=== PATIENT | male | born 1965 | race Hispanic/Latino ===

== ENCOUNTER 2020-12-25 15:56 | Inpatient (IN) | payer OTHER ==
[~2020-12-25] VITALS: Ht 170.2 cm; Wt 140.6 kg
[2020-12-25] MEDS ORDERED: GLIPIZIDE5 MG PO (18:19)
[2020-12-25] MEDS ORDERED: ENALAPRIL MALEA20 MG PO (18:19)
[2020-12-25] MEDS ORDERED: HYDROCHLOROTHIA25 MG PO (18:19)
[2020-12-25] MEDS ORDERED: METFORMIN HCL500 MG PO (18:19)
[2020-12-25] MEDS ORDERED: SODIUM CHLORIDE 0.9% 1000ML 1,000 ML ONE (18:35)
[2020-12-25] MEDS ORDERED: HYDRALAZINE HCL 20 MG/ML VIAL IV PRN (18:45)
[2020-12-25] MEDS ORDERED: MELATONIN 5 MG TABLET PO PRN (18:45)
[2020-12-25] MEDS ORDERED: MORPHINE SULFATE INJ 2 MG/ML SYR IV PRN (18:45)
[2020-12-25] MEDS ORDERED: ONDANSETRON HCL INJ 2MG/ML 2ML 2 MG/ML VIAL IV PRN (18:45)
[2020-12-25] MEDS ORDERED: ACETAMINOPHEN 325 MG TAB PO PRN (18:45)
[2020-12-25] MEDS ORDERED: DEXTROSE 50% SYRINGE 50 ML IV PRN (18:45)
[2020-12-25 18:57] VITALS: BP 144/88
[2020-12-25] MEDS ORDERED: SODIUM CHLORIDE 0.9% 1000ML 1,000 ML IV ONE ×2 (19:00→23:00)
[2020-12-25 20:00] VITALS: BP 144/80
[2020-12-25 20:16] VITALS: BP 144/80
[2020-12-25 20:44] VITALS: BP 144/80
[2020-12-25] MEDS: INSULIN LISPRO 100 UNIT/1 ML 3ML VIAL SQ SCH (21:00)
[2020-12-25] MEDS: ASPIRIN 81 MG CHEW TAB PO SCH (21:13)
[2020-12-25 21:18] LABS: BASOPHILS % 0.3 % (0.0-1.0); EOSINOPHILS # (AUTO) 0.1 (0.0-0.4); EOSINOPHILS % 1.6 % (0.0-6.0); HEMATOCRIT 22.2 % (38.2-49.6); LYMPHOCYTES # (AUTO) 1.5 (1.0-3.2); LYMPHOCYTES % 18.9 % (18.0-39.1); MEAN CORPUSCULAR HEMOGLOBIN 26.2 pg (28-32); MEAN CORPUSCULAR HGB CONC 29.7 g/dL (31-35); MEAN CORPUSCULAR VOLUME 88.1 fL (81-99); MONOCYTES # (AUTO) 0.6 (0.2-0.8); MONOCYTES % 7.2 % (4.4-11.3); NEUTROPHILS # (AUTO) 5.5 (2.1-6.9); NEUTROPHILS % 71.6 % (38.7-80.0); PLATELET COUNT 363 x10e3/uL (140-360); RED BLOOD COUNT 2.52 x10e6/uL (4.3-5.7); RED CELL DISTRIBUTION WIDTH 15.2 % (11.7-14.4)
[2020-12-25 21:22] LABS: HEMOGLOBIN 6.6 g/dL (14.0-18.0)
[2020-12-25 21:29] LABS: CLARITY,URINE CLEAR (CLEAR); COLOR,URINE YELLOW (YELLOW); KETONES,URINE NEGATIVE (NEGATIVE); LEUKOCYTE ESTERASE ,URINE NEGATIVE (NEGATIVE); NITRITE,URINE NEGATIVE (NEGATIVE); PROTEIN,URINE DIPSTICK 1+ (NEGATIVE); URINE UROBILINOGEN 0.2 mg/dL (0.2 - 1)
[2020-12-25 21:33] LABS: ALBUMIN 3.1 g/dL (3.5-5.0); ALBUMIN/GLOBULIN RATIO 0.7 (0.8-2.0); ANION GAP 17.5 mmol/L (8-16); CALCIUM 8.9 mg/dL (8.4-10.2); CREATININE, SERUM 2.32 mg/dL (0.72-1.25); POTASSIUM 4.5 mmol/L (3.5-5.1)
[2020-12-25 21:40] LABS: EPITHELIAL CELLS,URINE FEW /LPF
[2020-12-25 22:05] LABS: CREATINE KINASE 50 IU/L (30-200)
[2020-12-25] MEDS ORDERED: SODIUM CHLORIDE 0.9% 250ML 250 ML IV ONE (23:00)
[2020-12-26] VITALS (10 sets, daily range): BP systolic 136–155; BP diastolic 77–92
[2020-12-26] MEDS: INSULIN LISPRO 100 UNIT/1 ML 3ML VIAL SQ SCH ×4 (07:30→21:41)
[2020-12-26] MEDS: FAMOTIDINE 20 MG TAB PO SCH ×2 (09:00→16:30)
[2020-12-26] MEDS: PANTOPRAZOLE SOD 40 MG TABEC PO SCH (09:00)
[2020-12-26] MEDS: ASPIRIN 81 MG CHEW TAB PO SCH ×2 (09:00→18:47)
[2020-12-26 21:58] LABS: BASOPHILS % 0.3 % (0.0-1.0); EOSINOPHILS # (AUTO) 0.1 (0.0-0.4); EOSINOPHILS % 1.7 % (0.0-6.0); HEMATOCRIT 28.1 % (38.2-49.6); HEMOGLOBIN 8.5 g/dL (14.0-18.0); LYMPHOCYTES # (AUTO) 1.3 (1.0-3.2); LYMPHOCYTES % 15.9 % (18.0-39.1); MEAN CORPUSCULAR HEMOGLOBIN 26.8 pg (28-32); MEAN CORPUSCULAR HGB CONC 30.2 g/dL (31-35); MEAN CORPUSCULAR VOLUME 88.6 fL (81-99); MONOCYTES # (AUTO) 0.6 (0.2-0.8); MONOCYTES % 7.9 % (4.4-11.3); NEUTROPHILS # (AUTO) 5.8 (2.1-6.9); NEUTROPHILS % 73.9 % (38.7-80.0); PLATELET COUNT 324 x10e3/uL (140-360); RED BLOOD COUNT 3.17 x10e6/uL (4.3-5.7); RED CELL DISTRIBUTION WIDTH 14.7 % (11.7-14.4)
[2020-12-26 22:11] LABS: ALBUMIN/GLOBULIN RATIO 0.6 (0.8-2.0); ANION GAP 14.6 mmol/L (8-16); CALCIUM 9.2 mg/dL (8.4-10.2); CHOL/HDL RATIO 4.3 (3.9-4.7); POTASSIUM 4.6 mmol/L (3.5-5.1)
[2020-12-26 22:23] LABS: CREATINE KINASE 40 IU/L (30-200)
[2020-12-26 22:30] LABS: CREATININE, SERUM 2.17 mg/dL (0.72-1.25); THYROID STIMULATING HORMONE 4.565 uIU/mL (0.350-4.940)
[2020-12-27 00:31] VITALS: BP 135/92
[2020-12-27 04:00] VITALS: BP 156/87
[2020-12-27 06:45] LABS: BASOPHILS % 0.4 % (0.0-1.0); EOSINOPHILS # (AUTO) 0.1 (0.0-0.4); EOSINOPHILS % 1.7 % (0.0-6.0); HEMOGLOBIN 8.5 g/dL (14.0-18.0); LYMPHOCYTES # (AUTO) 1.2 (1.0-3.2); LYMPHOCYTES % 15.9 % (18.0-39.1); MEAN CORPUSCULAR HEMOGLOBIN 26.5 pg (28-32); MEAN CORPUSCULAR HGB CONC 30.4 g/dL (31-35); MEAN CORPUSCULAR VOLUME 87.2 fL (81-99); MONOCYTES # (AUTO) 0.6 (0.2-0.8); MONOCYTES % 7.9 % (4.4-11.3); NEUTROPHILS # (AUTO) 5.5 (2.1-6.9); NEUTROPHILS % 73.7 % (38.7-80.0); PLATELET COUNT 357 x10e3/uL (140-360); RED BLOOD COUNT 3.21 x10e6/uL (4.3-5.7); RED CELL DISTRIBUTION WIDTH 14.7 % (11.7-14.4)
[2020-12-27 07:07] LABS: ANION GAP 15.3 mmol/L (8-16); CALCIUM 9.3 mg/dL (8.4-10.2); CREATININE, SERUM 2.08 mg/dL (0.72-1.25); POTASSIUM 4.3 mmol/L (3.5-5.1)
[2020-12-27 07:25] VITALS: BP 141/79
[2020-12-27 07:26] LABS: CREATINE KINASE 33 IU/L (30-200)
[2020-12-27] MEDS: FAMOTIDINE 20 MG TAB PO SCH (07:30)
[2020-12-27] MEDS: PANTOPRAZOLE SOD 40 MG TABEC PO SCH (07:30)
[2020-12-27 08:23] VITALS: BP 141/79
[2020-12-27] MEDS: INSULIN LISPRO 100 UNIT/1 ML 3ML VIAL SQ SCH ×2 (08:30→12:01)
[2020-12-27] MEDS: ASPIRIN 81 MG CHEW TAB PO SCH (09:00)
[2020-12-27 11:34] VITALS: BP 137/89
[2020-12-27] MEDS ORDERED: PANTOPRAZOLE SO40 MG PO (12:17)
[2020-12-27] MEDS ORDERED: DEXTROSE 50% SYRINGE 50 ML IV ONE (15:29)
== END 2020-12-27 13:25 | disposition home or self-care (01) | DRG 683 ==
LOC: MED/SURG 18:09
PROVIDERS: ADMIT Internal Medicine; ATTEND Internal Medicine
PROC: 30233N1 Transfusion of Nonautologous Red Blood Cells into Peripheral Vein, Percutaneous Approach (ICD-10-PCS; principal; 2020-12-26)
DX: N17.9 Acute kidney failure, unspecified (principal); I13.0 Hypertensive heart and chronic kidney disease with heart failure and stage 1 through stage 4 chronic kidney disease, or unspecified chronic kidney disease; Z68.42 Body mass index [BMI] 45.0-49.9, adult; K92.1 Melena; I50.22 Chronic systolic (congestive) heart failure; R07.9 Chest pain, unspecified; E11.22 Type 2 diabetes mellitus with diabetic chronic kidney disease; E66.01 Morbid (severe) obesity due to excess calories; N18.32 Chronic kidney disease, stage 3b; D63.1 Anemia in chronic kidney disease; Z82.49 Family history of ischemic heart disease and other diseases of the circulatory system; Z83.3 Family history of diabetes mellitus; Z80.9 Family history of malignant neoplasm, unspecified; Z72.89 Other problems related to lifestyle
CPT/HCPCS: 36415; 71045; 78580; 80048; 80053; 80061; 81001; 82270; 82550; 82553; 82948; 83036; 83880; 84443; 84484; 85025; 86850; 86900; 86920; 87086; 93306; A9540; J7030; J7050; J7799; P9016

== ENCOUNTER 2021-01-02 19:14 | Emergency (ER) | payer OTHER ==
[~2021-01-02] VITALS: Ht 170.2 cm; Wt 140.6 kg
[~2021-01-02 19:14] MED LIST: ENALAPRIL MALEA20 MG PO; GLIPIZIDE5 MG PO; HYDROCHLOROTHIA25 MG PO; METFORMIN HCL500 MG PO; PANTOPRAZOLE SO40 MG PO
[2021-01-02 19:36] LABS: BASOPHILS % 0.2 % (0.0-1.0); EOSINOPHILS # (AUTO) 0.1 (0.0-0.4); EOSINOPHILS % 1.6 % (0.0-6.0); HEMATOCRIT 29.2 % (38.2-49.6); HEMOGLOBIN 8.8 g/dL (14.0-18.0); LYMPHOCYTES # (AUTO) 1.1 (1.0-3.2); LYMPHOCYTES % 13.6 % (18.0-39.1); MEAN CORPUSCULAR HEMOGLOBIN 26.9 pg (28-32); MEAN CORPUSCULAR HGB CONC 30.1 g/dL (31-35); MEAN CORPUSCULAR VOLUME 89.3 fL (81-99); MONOCYTES # (AUTO) 0.7 (0.2-0.8); MONOCYTES % 8.8 % (4.4-11.3); NEUTROPHILS # (AUTO) 6.3 (2.1-6.9); NEUTROPHILS % 75.6 % (38.7-80.0); PLATELET COUNT 358 x10e3/uL (140-360); RED BLOOD COUNT 3.27 x10e6/uL (4.3-5.7); RED CELL DISTRIBUTION WIDTH 14.8 % (11.7-14.4)
[2021-01-02 19:56] LABS: ALBUMIN 3.4 g/dL (3.5-5.0); ALBUMIN/GLOBULIN RATIO 0.7 (0.8-2.0); ANION GAP 18.6 mmol/L (8-16); CALCIUM 9.1 mg/dL (8.4-10.2); CREATININE, SERUM 2.2 mg/dL (0.72-1.25); POTASSIUM 4.6 mmol/L (3.5-5.1)
[2021-01-02] MEDS ORDERED: DEXTROSE 50% SYRINGE 50 ML IV STA (20:02)
[2021-01-02] MEDS ORDERED: DEXTROSE 50% SYRINGE 50 ML IV ONE (20:13)
[2021-01-02 22:36] VITALS: BP 177/89
== END 2021-01-02 22:40 | disposition home or self-care (01) ==
LOC: ER 19:19
DX: D64.9 Anemia, unspecified (principal); R42 Dizziness and giddiness; E11.649 Type 2 diabetes mellitus with hypoglycemia without coma; I10 Essential (primary) hypertension
CPT/HCPCS: 36415; 80053; 82948; 85025; 99283; J7799

== ENCOUNTER 2021-01-15 05:42 | Emergency (ER) | payer OTHER ==
[~2021-01-15] VITALS: Ht 170.2 cm; Wt 140.6 kg
[2021-01-15] MEDS ORDERED: MORPHINE SULFATE INJ 4 MG/ML INJ 1ML IV STA ×2 (05:52→10:56)
[2021-01-15] MEDS ORDERED: ONDANSETRON HCL INJ 2MG/ML 2ML 2 MG/ML VIAL IV STA (05:52)
[2021-01-15] MEDS ORDERED: SODIUM CHLORIDE 0.9% 500ML 500 ML IV ONE ×2 (06:00→09:00)
[2021-01-15 06:10] LABS: BASOPHILS % 0.3 % (0.0-1.0); EOSINOPHILS # (AUTO) 0.1 (0.0-0.4); EOSINOPHILS % 0.8 % (0.0-6.0); HEMATOCRIT 26.2 % (38.2-49.6); LYMPHOCYTES # (AUTO) 1.2 (1.0-3.2); LYMPHOCYTES % 11.9 % (18.0-39.1); MEAN CORPUSCULAR HEMOGLOBIN 26.2 pg (28-32); MEAN CORPUSCULAR HGB CONC 30.5 g/dL (31-35); MEAN CORPUSCULAR VOLUME 85.9 fL (81-99); MONOCYTES % 9.7 % (4.4-11.3); NEUTROPHILS # (AUTO) 7.9 (2.1-6.9); NEUTROPHILS % 76.6 % (38.7-80.0); PLATELET COUNT 441 x10e3/uL (140-360); RED BLOOD COUNT 3.05 x10e6/uL (4.3-5.7); RED CELL DISTRIBUTION WIDTH 14.9 % (11.7-14.4)
[2021-01-15 06:33] LABS: ALANINE AMINOTRANSFERASE 17 IU/L (0-55); ALBUMIN 3.3 g/dL (3.5-5.0); ALBUMIN/GLOBULIN RATIO 0.6 (0.8-2.0); ALKALINE PHOSPHATASE 144 IU/L (40-150); ANION GAP 20.5 mmol/L (8-16); BLOOD UREA NITROGEN 52 mg/dL (7-26); BUN/CREATININE RATIO 17 (6-25); CALCIUM 9.7 mg/dL (8.4-10.2); CARBON DIOXIDE 21 mmol/L (22-29); CHLORIDE 99 mmol/L (98-107); CREATINE KINASE 33 IU/L (30-200); CREATININE, SERUM 3.03 mg/dL (0.72-1.25); EST GLOMERULAR FILTRATION RATE 22 ML/MIN (60-); GLUCOSE 136 mg/dL (74-118); MAGNESIUM 2.1 MG/DL (1.3-2.1); POTASSIUM 5.5 mmol/L (3.5-5.1); SODIUM 135 mmol/L (136-145)
[2021-01-15 06:37] LABS: INR 1.03; PROTHROMBIN TIME 14.1 seconds (11.9-14.5)
[2021-01-15 06:38] LABS: PARTIAL THROMBOPLASTIN TIME 33.2 seconds (23.8-35.5)
[2021-01-15] MEDS ORDERED: HEPARIN 25,000 UNIT 1,500 UNIT in DEXTROSE 5% 250ML 250 ML IV SCH (07:45)
[2021-01-15] MEDS ORDERED: HEPARIN SOD (PORCINE) 1000 UNIT/ML SDV IV ONE (07:45)
[2021-01-15] MEDS ORDERED: HEPARIN 25,000 UNIT DRIP IV ONE (08:08)
[2021-01-15] MEDS ORDERED: SODIUM CHLORIDE 0.9% 500ML 500 ML ONE (09:00)
[2021-01-15 09:14] LABS: CLARITY,URINE CLEAR (CLEAR); COLOR,URINE YELLOW (YELLOW); KETONES,URINE NEGATIVE (NEGATIVE); LEUKOCYTE ESTERASE ,URINE NEGATIVE (NEGATIVE); NITRITE,URINE NEGATIVE (NEGATIVE); PROTEIN,URINE DIPSTICK TRACE (NEGATIVE); URINE UROBILINOGEN 0.2 mg/dL (0.2 - 1)
[2021-01-15 09:15] LABS: EPITHELIAL CELLS,URINE FEW /LPF; RBC,URINE 0-5 /HPF (0-5); WBC,URINE (MAN) 0-5 /HPF (0-5)
[2021-01-15 09:28] LABS: BACTERIA,URINE MANY /HPF
[2021-01-15] MEDS ORDERED: MORPHINE SULFATE INJ 2 MG/ML SYR ONE (11:38)
== END 2021-01-15 11:36 | disposition other institution (70) ==
LOC: ER 05:57
DX: M79.662 Pain in left lower leg (principal); I82.422 Acute embolism and thrombosis of left iliac vein; E11.65 Type 2 diabetes mellitus with hyperglycemia; R94.31 Abnormal electrocardiogram [ECG] [EKG]; I10 Essential (primary) hypertension; D64.9 Anemia, unspecified; N18.9 Chronic kidney disease, unspecified; Z20.822 Contact with and (suspected) exposure to COVID-19
CPT/HCPCS: 36415; 71045; 80053; 81001; 82550; 82553; 83605; 83735; 84484; 85025; 85379; 85610; 85730; 87040; 87086; 93005; 93971; 99284; J1644; J2270 ×2; J2405; J7040; U0002

== ENCOUNTER 2021-04-22 20:08 | Inpatient (IN) | payer OTHER ==
[~2021-04-22] VITALS: Ht 152.4 cm; Wt 140.6 kg
[2021-04-22] MEDS ORDERED: CALCITONIN SALMON 400 IU/2ML VIAL SC ONE (20:15)
[2021-04-22] MEDS: SODIUM CHLORIDE 0.9% 1000ML 1,000 ML IV SCH (21:07)
[2021-04-22 21:48] LABS: BASOPHILS % 0.4 % (0.0-1.0); EOSINOPHILS # (AUTO) 0.1 (0.0-0.4); HEMATOCRIT 30.8 % (38.2-49.6); HEMOGLOBIN 9.3 g/dL (14.0-18.0); LYMPHOCYTES # (AUTO) 1.2 (1.0-3.2); LYMPHOCYTES % 15.1 % (18.0-39.1); MEAN CORPUSCULAR HGB CONC 30.2 g/dL (31-35); MEAN CORPUSCULAR VOLUME 89.5 fL (81-99); MONOCYTES # (AUTO) 0.7 (0.2-0.8); MONOCYTES % 9.3 % (4.4-11.3); NEUTROPHILS # (AUTO) 5.7 (2.1-6.9); NEUTROPHILS % 73.8 % (38.7-80.0); PLATELET COUNT 413 x10e3/uL (140-360); RED BLOOD COUNT 3.44 x10e6/uL (4.3-5.7); RED CELL DISTRIBUTION WIDTH 14.2 % (11.7-14.4)
[2021-04-22 21:52] LABS: ALANINE AMINOTRANSFERASE 9 IU/L (0-55); ALBUMIN 3.4 g/dL (3.5-5.0); ALBUMIN/GLOBULIN RATIO 0.7 (0.8-2.0); ALKALINE PHOSPHATASE 159 IU/L (40-150); ANION GAP 15.5 mmol/L (8-16); BLOOD UREA NITROGEN 19 mg/dL (7-26); BUN/CREATININE RATIO 11 (6-25); CALCIUM 12.4 mg/dL (8.4-10.2); CARBON DIOXIDE 21 mmol/L (22-29); CHLORIDE 101 mmol/L (98-107); CREATINE KINASE 12 IU/L (30-200); CREATININE, SERUM 1.73 mg/dL (0.72-1.25); EST GLOMERULAR FILTRATION RATE 42 ML/MIN (60-); GLUCOSE 131 mg/dL (74-118); POTASSIUM 4.5 mmol/L (3.5-5.1); SODIUM 133 mmol/L (136-145)
[2021-04-23] MEDS: SODIUM CHLORIDE 0.9% 1000ML 1,000 ML IV SCH ×3 (06:49→21:02)
[2021-04-23] MEDS ORDERED: CALCITONIN SALMON 400 IU/2ML VIAL SC SCH (09:00)
[2021-04-23] MEDS ORDERED: HYDRALAZINE HCL 20 MG/ML VIAL IV PRN (11:00)
[2021-04-23] MEDS ORDERED: DEXTROSE 50% SYRINGE 50 ML IV PRN (11:00)
[2021-04-23] MEDS: INSULIN LISPRO 100 UNIT/1 ML 3ML VIAL SQ SCH ×3 (11:30→21:15)
[2021-04-23 11:38] VITALS: BP 118/67
[2021-04-23 11:50] VITALS: BP 118/67
[2021-04-23 12:54] LABS: ANION GAP 13.5 mmol/L (8-16); CALCIUM 11.5 mg/dL (8.4-10.2); CREATININE, SERUM 1.38 mg/dL (0.72-1.25)
[2021-04-23 12:57] LABS: POTASSIUM 5.5 mmol/L (3.5-5.1)
[2021-04-23] MEDS ORDERED: ELIQUIS2.5 MG PO (14:07)
[2021-04-23] MEDS ORDERED: CALCITONIN SALMON 400 IU/2ML VIAL SC ONE (15:00)
[2021-04-23 15:19] VITALS: BP 136/85
[2021-04-23] MEDS ORDERED: SOD POLYSTYRENE SULFONATE SUSP 15 GM/60 ML BTL PO ONE (15:50)
[2021-04-23] MEDS ORDERED: LACTULOSE SYRUP 20 GM/30 ML UDC PO ONE (15:50)
[2021-04-23] MEDS ORDERED: PAMIDRONATE DISODIUM 90 MG in SODIUM CHLORIDE 0.9% 1000ML 1,000 ML IV ONE (16:00)
[2021-04-23] MEDS: APIXABAN 5 MG TABLET PO SCH (16:01)
[2021-04-23 20:00] VITALS: BP 137/79
[2021-04-23 21:00] VITALS: BP 137/79
[2021-04-24] VITALS (8 sets, daily range): BP systolic 124–153; BP diastolic 76–87
[2021-04-24] MEDS: SODIUM CHLORIDE 0.9% 1000ML 1,000 ML IV SCH ×3 (04:36→19:41)
[2021-04-24 06:34] LABS: BASOPHILS % 0.4 % (0.0-1.0); EOSINOPHILS # (AUTO) 0.1 (0.0-0.4); EOSINOPHILS % 1.6 % (0.0-6.0); HEMATOCRIT 29.3 % (38.2-49.6); HEMOGLOBIN 8.6 g/dL (14.0-18.0); LYMPHOCYTES # (AUTO) 0.9 (1.0-3.2); LYMPHOCYTES % 12.8 % (18.0-39.1); MEAN CORPUSCULAR HEMOGLOBIN 26.4 pg (28-32); MEAN CORPUSCULAR HGB CONC 29.4 g/dL (31-35); MEAN CORPUSCULAR VOLUME 89.9 fL (81-99); MONOCYTES # (AUTO) 0.6 (0.2-0.8); MONOCYTES % 7.9 % (4.4-11.3); NEUTROPHILS # (AUTO) 5.7 (2.1-6.9); PLATELET COUNT 365 x10e3/uL (140-360); RED BLOOD COUNT 3.26 x10e6/uL (4.3-5.7); RED CELL DISTRIBUTION WIDTH 14.1 % (11.7-14.4)
[2021-04-24 06:53] LABS: ALBUMIN 3.1 g/dL (3.5-5.0); ALBUMIN/GLOBULIN RATIO 0.7 (0.8-2.0); ALKALINE PHOSPHATASE 137 IU/L (40-150); ANION GAP 13.5 mmol/L (8-16); BLOOD UREA NITROGEN 13 mg/dL (7-26); BUN/CREATININE RATIO 11 (6-25); CALCIUM 10.8 mg/dL (8.4-10.2); CARBON DIOXIDE 22 mmol/L (22-29); CHLORIDE 104 mmol/L (98-107); CREATININE, SERUM 1.22 mg/dL (0.72-1.25); EST GLOMERULAR FILTRATION RATE 62 ML/MIN (60-); GLUCOSE 128 mg/dL (74-118); POTASSIUM 4.5 mmol/L (3.5-5.1); SODIUM 135 mmol/L (136-145)
[2021-04-24 07:08] LABS: ALANINE AMINOTRANSFERASE < 6 IU/L (0-55)
[2021-04-24] MEDS: INSULIN LISPRO 100 UNIT/1 ML 3ML VIAL SQ SCH ×4 (07:30→20:24)
[2021-04-24] MEDS: APIXABAN 5 MG TABLET PO SCH ×2 (08:51→16:45)
[2021-04-24] MEDS ORDERED: ASCORBIC ACID 500 MG TAB PO SCH (09:00)
[2021-04-24] MEDS ORDERED: ZINC SULFATE 220 MG CAP PO SCH (09:00)
[2021-04-24] MEDS ORDERED: CHOLECALCIFEROL 1,000 UNIT TAB PO SCH (09:00)
[2021-04-24] MEDS ORDERED: ONDANSETRON HCL INJ 2MG/ML 2ML 2 MG/ML VIAL IV PRN (17:15)
[2021-04-24] MEDS: METOPROLOL TARTRATE INJ 1 MG/ML VIAL IV PRN ×2 (17:40→21:40)
[2021-04-24] MEDS ORDERED: ACETAMINOPHEN 325 MG TAB PO PRN (20:30)
[2021-04-25] VITALS (7 sets, daily range): BP systolic 110–148; BP diastolic 72–92
[2021-04-25] MEDS: METOPROLOL TARTRATE INJ 1 MG/ML VIAL IV PRN (03:47)
[2021-04-25] MEDS: SODIUM CHLORIDE 0.9% 1000ML 1,000 ML IV SCH ×3 (06:57→22:44)
[2021-04-25 07:15] LABS: ALBUMIN/GLOBULIN RATIO 0.7 (0.8-2.0); ANION GAP 13.4 mmol/L (8-16); CALCIUM 10.3 mg/dL (8.4-10.2); CREATININE, SERUM 1.22 mg/dL (0.72-1.25); POTASSIUM 4.4 mmol/L (3.5-5.1)
[2021-04-25] MEDS: APIXABAN 5 MG TABLET PO SCH ×2 (09:00→17:30)
[2021-04-25] MEDS: INSULIN LISPRO 100 UNIT/1 ML 3ML VIAL SQ SCH ×4 (10:21→21:00)
[2021-04-25] MEDS ORDERED: PANTOPRAZOLE SOD 40 MG TABEC PO ONE (12:45)
[2021-04-26] VITALS: BP 135/78
[2021-04-26 04:00] VITALS: BP 134/73
[2021-04-26 05:07] LABS: ANION GAP 10.9 mmol/L (8-16); CREATININE, SERUM 1.14 mg/dL (0.72-1.25); POTASSIUM 3.9 mmol/L (3.5-5.1)
[2021-04-26] MEDS ORDERED: PANTOPRAZOLE SOD 40 MG TABEC PO SCH (07:30)
[2021-04-26] MEDS: INSULIN LISPRO 100 UNIT/1 ML 3ML VIAL SQ SCH ×3 (07:30→16:20)
[2021-04-26 08:04] VITALS: BP_SYST 134; BP_SYST 138; BP_DIAS 72; BP_DIAS 73
[2021-04-26] MEDS: APIXABAN 5 MG TABLET PO SCH (08:30)
[2021-04-26] MEDS: SODIUM CHLORIDE 0.9% 1000ML 1,000 ML IV SCH (08:30)
[2021-04-26 11:54] LABS: CLARITY,URINE CLEAR (CLEAR); COLOR,URINE YELLOW (YELLOW); LEUKOCYTE ESTERASE ,URINE NEGATIVE (NEGATIVE); NITRITE,URINE NEGATIVE (NEGATIVE); PROTEIN,URINE DIPSTICK 1+ (NEGATIVE)
[2021-04-26 11:55] LABS: KETONES,URINE NEGATIVE (NEGATIVE)
[2021-04-26 12:24] VITALS: BP 142/79
[2021-04-26 12:32] LABS: EPITHELIAL CELLS,URINE FEW /LPF; MUCUS,URINE FEW (RARE); RBC,URINE 0-5 /HPF (0-5); WBC,URINE (MAN) 0-5 /HPF (0-5)
[2021-04-26] MEDS ORDERED: ACETAMINOPHEN325 M1 PO (16:23)
[2021-04-26] MEDS ORDERED: SODIUM BICARBO650 MG PO (16:23)
[2021-04-26] MEDS ORDERED: SODIUM BICARBONATE 650 MG TAB PO SCH (17:00)
[2021-04-26 17:29] VITALS: BP 136/76
== END 2021-04-26 17:40 | disposition home or self-care (01) | DRG 871 ==
LOC: ER 20:12 → ERHOLD 20:51 → MED/SURG2 04-23 10:28
PROVIDERS: ADMIT Internal Medicine; ATTEND Internal Medicine
DX: A41.9 Sepsis, unspecified organism (principal); E11.10 Type 2 diabetes mellitus with ketoacidosis without coma; K65.9 Peritonitis, unspecified; C64.2 Malignant neoplasm of left kidney, except renal pelvis; C79.9 Secondary malignant neoplasm of unspecified site; E87.2 Acidosis; N17.9 Acute kidney failure, unspecified; E87.1 Hypo-osmolality and hyponatremia; Z68.44 Body mass index [BMI] 60.0-69.9, adult; K21.9 Gastro-esophageal reflux disease without esophagitis; Z86.718 Personal history of other venous thrombosis and embolism; E83.52 Hypercalcemia; D63.8 Anemia in other chronic diseases classified elsewhere; E11.9 Type 2 diabetes mellitus without complications; E88.09 Other disorders of plasma-protein metabolism, not elsewhere classified; F10.21 Alcohol dependence, in remission; E87.5 Hyperkalemia; I12.9 Hypertensive chronic kidney disease with stage 1 through stage 4 chronic kidney disease, or unspecified chronic kidney disease; N18.30 Chronic kidney disease, stage 3 unspecified; E66.01 Morbid (severe) obesity due to excess calories
CPT/HCPCS: 36415; 71045; 76770; 80048; 80053; 81001; 82550; 82553; 82948; 83036; 83935; 84484; 85025; 87040; 93976; 96361; 99284; J2405; J2430; J7030; U0002

== ENCOUNTER 2021-07-03 14:17 | Inpatient (IN) | payer OTHER ==
[~2021-07-03] VITALS: Ht 170.2 cm; Wt 113.4 kg
[~2021-07-03 14:17] MED LIST changes: +ACETAMINOPHEN325 M1 PO; +ELIQUIS2.5 MG PO; +SODIUM BICARBO650 MG PO
[2021-07-03 14:56] LABS: BASOPHILS # (AUTO) 0.1 (0.0-0.1); BASOPHILS % 0.7 % (0.0-1.0); EOSINOPHILS # (AUTO) 0.3 (0.0-0.4); EOSINOPHILS % 3.7 % (0.0-6.0); HEMATOCRIT 32.9 % (38.2-49.6); HEMOGLOBIN 9.7 g/dL (14.0-18.0); LYMPHOCYTES # (AUTO) 1.4 (1.0-3.2); LYMPHOCYTES % 16.7 % (18.0-39.1); MEAN CORPUSCULAR HEMOGLOBIN 25.7 pg (28-32); MEAN CORPUSCULAR HGB CONC 29.5 g/dL (31-35); MEAN CORPUSCULAR VOLUME 87.3 fL (81-99); MONOCYTES # (AUTO) 0.8 (0.2-0.8); MONOCYTES % 8.7 % (4.4-11.3); NEUTROPHILS % 69.9 % (38.7-80.0); PLATELET COUNT 537 x10e3/uL (140-360); RED BLOOD COUNT 3.77 x10e6/uL (4.3-5.7); RED CELL DISTRIBUTION WIDTH 14.5 % (11.7-14.4)
[2021-07-03 15:24] LABS: INR 1.23; PROTHROMBIN TIME 16.5 seconds (11.9-14.5)
[2021-07-03 15:25] LABS: PARTIAL THROMBOPLASTIN TIME 38.6 seconds (23.8-35.5)
[2021-07-03 15:34] LABS: ALANINE AMINOTRANSFERASE 9 IU/L (0-55); ALBUMIN 3.4 g/dL (3.5-5.0); ALBUMIN/GLOBULIN RATIO 0.6 (0.8-2.0); ALKALINE PHOSPHATASE 205 IU/L (40-150); ANION GAP 17.4 mmol/L (8-16); BLOOD UREA NITROGEN 12 mg/dL (7-26); BUN/CREATININE RATIO 11 (6-25); CALCIUM 12.5 mg/dL (8.4-10.2); CARBON DIOXIDE 23 mmol/L (22-29); CHLORIDE 99 mmol/L (98-107); CREATINE KINASE 8 IU/L (30-200); CREATININE, SERUM 1.13 mg/dL (0.72-1.25); EST GLOMERULAR FILTRATION RATE 68 ML/MIN (60-); GLUCOSE 62 mg/dL (74-118); POTASSIUM 5.4 mmol/L (3.5-5.1); SODIUM 134 mmol/L (136-145)
[2021-07-03] MEDS ORDERED: DEXTROSE 50% SYRINGE 50 ML IV NR (15:43)
[2021-07-03] MEDS ORDERED: SODIUM CHLORIDE 0.9% 500ML 500 ML IV ONE (15:50)
[2021-07-03] MEDS ORDERED: DEXTROSE 5% 1,000 ML IV ONE (17:45)
[2021-07-03] MEDS ORDERED: DEXTROSE 50% SYRINGE 50 ML IV PRN (17:45)
[2021-07-03] MEDS ORDERED: ONDANSETRON HCL INJ 2MG/ML 2ML 2 MG/ML VIAL IV PRN (17:45)
[2021-07-03] MEDS: FAMOTIDINE 20 MG/2 ML VIAL IV SCH (18:31)
[2021-07-03 20:52] LABS: HYPOCHROMASIA MODERATE; PLATELET ESTIMATE ADEQUATE; PLATELET MORPHOLOGY COMMENT NORMAL
[2021-07-03 20:57] VITALS: BP 130/70
[2021-07-03] MEDS: HYDROCODONE/APAP 10MG-325MG TAB PO PRN (21:22)
[2021-07-03 21:45] VITALS: BP 130/70
[2021-07-04] VITALS (8 sets, daily range): BP systolic 112–135; BP diastolic 65–76
[2021-07-04] MEDS ORDERED: vitamin B-12 (00:05)
[2021-07-04 05:31] LABS: BASOPHILS # (AUTO) 0.1 (0.0-0.1); BASOPHILS % 0.8 % (0.0-1.0); EOSINOPHILS # (AUTO) 0.4 (0.0-0.4); HEMATOCRIT 26.8 % (38.2-49.6); LYMPHOCYTES # (AUTO) 1.4 (1.0-3.2); LYMPHOCYTES % 17.7 % (18.0-39.1); MEAN CORPUSCULAR HEMOGLOBIN 25.7 pg (28-32); MEAN CORPUSCULAR HGB CONC 29.9 g/dL (31-35); MEAN CORPUSCULAR VOLUME 86.2 fL (81-99); MONOCYTES # (AUTO) 0.9 (0.2-0.8); MONOCYTES % 11.2 % (4.4-11.3); NEUTROPHILS % 64.9 % (38.7-80.0); PLATELET COUNT 456 x10e3/uL (140-360); RED BLOOD COUNT 3.11 x10e6/uL (4.3-5.7); RED CELL DISTRIBUTION WIDTH 14.6 % (11.7-14.4)
[2021-07-04] MEDS: FAMOTIDINE 20 MG/2 ML VIAL IV SCH ×2 (05:50→08:44)
[2021-07-04 05:55] LABS: ALBUMIN 2.9 g/dL (3.5-5.0); ALBUMIN/GLOBULIN RATIO 0.6 (0.8-2.0); CALCIUM 11.6 mg/dL (8.4-10.2)
[2021-07-04 06:51] LABS: CREATININE, SERUM 1.17 mg/dL (0.72-1.25)
[2021-07-04 07:10] LABS: CREATINE KINASE < 7 IU/L (30-200)
[2021-07-04 16:00] LABS: CREATINE KINASE 14 IU/L (30-200)
[2021-07-04] MEDS: ENALAPRIL MALEATE 10 MG TAB PO SCH (17:50)
[2021-07-04] MEDS: APIXAB 2.5 MG TABLET PO SCH (17:50)
[2021-07-04] MEDS: HYDROCODONE/APAP 10MG-325MG TAB PO PRN (17:53)
[2021-07-05] VITALS (7 sets, daily range): BP systolic 116–145; BP diastolic 73–88
[2021-07-05 05:44] LABS: BASOPHILS # (AUTO) 0.1 (0.0-0.1); BASOPHILS % 0.6 % (0.0-1.0); EOSINOPHILS # (AUTO) 0.4 (0.0-0.4); EOSINOPHILS % 4.5 % (0.0-6.0); HEMATOCRIT 27.7 % (38.2-49.6); HEMOGLOBIN 8.2 g/dL (14.0-18.0); LYMPHOCYTES # (AUTO) 1.1 (1.0-3.2); LYMPHOCYTES % 12.7 % (18.0-39.1); MEAN CORPUSCULAR HEMOGLOBIN 25.6 pg (28-32); MEAN CORPUSCULAR HGB CONC 29.6 g/dL (31-35); MEAN CORPUSCULAR VOLUME 86.6 fL (81-99); MONOCYTES # (AUTO) 0.9 (0.2-0.8); MONOCYTES % 10.6 % (4.4-11.3); NEUTROPHILS # (AUTO) 6.1 (2.1-6.9); NEUTROPHILS % 71.4 % (38.7-80.0); PLATELET COUNT 452 x10e3/uL (140-360); RED CELL DISTRIBUTION WIDTH 14.2 % (11.7-14.4)
[2021-07-05 06:02] LABS: ANION GAP 14.2 mmol/L (8-16); CALCIUM 11.7 mg/dL (8.4-10.2); CREATININE, SERUM 1.18 mg/dL (0.72-1.25); POTASSIUM 5.2 mmol/L (3.5-5.1)
[2021-07-05] MEDS: FAMOTIDINE 20 MG/2 ML VIAL IV SCH ×2 (06:07→16:43)
[2021-07-05 06:35] LABS: CALCIUM IONIZED 1.7 mmol/L (1.09-1.30)
[2021-07-05] MEDS: PANTOPRAZOLE SOD 40 MG TABEC PO SCH (09:46)
[2021-07-05] MEDS: APIXAB 2.5 MG TABLET PO SCH ×2 (09:46→16:43)
[2021-07-05] MEDS: ENALAPRIL MALEATE 10 MG TAB PO SCH ×2 (09:47→16:43)
[2021-07-05] MEDS ORDERED: SOD POLYSTYRENE SULFONATE SUSP 15 GM/60 ML BTL PO ONE (11:10)
[2021-07-06] VITALS (8 sets, daily range): BP systolic 117–131; BP diastolic 64–85
[2021-07-06 05:25] LABS: BASOPHILS # (AUTO) 0.1 (0.0-0.1); BASOPHILS % 0.6 % (0.0-1.0); EOSINOPHILS # (AUTO) 0.4 (0.0-0.4); HEMATOCRIT 28.2 % (38.2-49.6); HEMOGLOBIN 8.4 g/dL (14.0-18.0); LYMPHOCYTES # (AUTO) 1.3 (1.0-3.2); LYMPHOCYTES % 15.4 % (18.0-39.1); MEAN CORPUSCULAR HEMOGLOBIN 25.7 pg (28-32); MEAN CORPUSCULAR HGB CONC 29.8 g/dL (31-35); MEAN CORPUSCULAR VOLUME 86.2 fL (81-99); MONOCYTES % 11.6 % (4.4-11.3); NEUTROPHILS # (AUTO) 5.9 (2.1-6.9); NEUTROPHILS % 68.2 % (38.7-80.0); PLATELET COUNT 467 x10e3/uL (140-360); RED BLOOD COUNT 3.27 x10e6/uL (4.3-5.7); RED CELL DISTRIBUTION WIDTH 14.4 % (11.7-14.4)
[2021-07-06] MEDS: FAMOTIDINE 20 MG/2 ML VIAL IV SCH (05:38)
[2021-07-06 05:39] LABS: ALBUMIN/GLOBULIN RATIO 0.7 (0.8-2.0); ALKALINE PHOSPHATASE 167 IU/L (40-150); ANION GAP 11.7 mmol/L (8-16); BLOOD UREA NITROGEN 11 mg/dL (7-26); BUN/CREATININE RATIO 9 (6-25); CALCIUM 11.8 mg/dL (8.4-10.2); CARBON DIOXIDE 26 mmol/L (22-29); CHLORIDE 98 mmol/L (98-107); CREATININE, SERUM 1.18 mg/dL (0.72-1.25); EST GLOMERULAR FILTRATION RATE 65 ML/MIN (60-); GLUCOSE 112 mg/dL (74-118); POTASSIUM 4.7 mmol/L (3.5-5.1); SODIUM 131 mmol/L (136-145)
[2021-07-06 06:13] LABS: ALANINE AMINOTRANSFERASE < 6 IU/L (0-55)
[2021-07-06] MEDS: PANTOPRAZOLE SOD 40 MG TABEC PO SCH (09:40)
[2021-07-06] MEDS: ENALAPRIL MALEATE 10 MG TAB PO SCH (09:40)
[2021-07-06] MEDS: APIXAB 2.5 MG TABLET PO SCH ×2 (09:42→17:25)
[2021-07-06] MEDS: IRON SUCROSE 100 MG in SODIUM CHLORIDE 0.9% 100 ML 100 ML IV SCH (13:50)
[2021-07-06] MEDS ORDERED: PAMIDRONATE DISODIUM 60 MG in SODIUM CHLORIDE 0.9% 1000ML 1,000 ML IV ONE (14:00)
[2021-07-06] MEDS ORDERED: ARTIFICIAL TEARS (OPTH) 15 ML BTL OU PRN (15:30)
[2021-07-06] MEDS: FAMOTIDINE 20 MG TAB PO SCH (21:25)
[2021-07-06] MEDS: SODIUM CHLORIDE 0.9% 1000ML 1,000 ML IV SCH ×2 (23:15→23:23)
[2021-07-07 05:11] VITALS: BP 139/86
[2021-07-07 05:44] LABS: ALBUMIN 2.8 g/dL (3.5-5.0); ALBUMIN/GLOBULIN RATIO 0.7 (0.8-2.0); ALKALINE PHOSPHATASE 181 IU/L (40-150); ANION GAP 13.2 mmol/L (8-16); BLOOD UREA NITROGEN 11 mg/dL (7-26); BUN/CREATININE RATIO 11 (6-25); CALCIUM 11.4 mg/dL (8.4-10.2); CARBON DIOXIDE 22 mmol/L (22-29); CHLORIDE 101 mmol/L (98-107); EST GLOMERULAR FILTRATION RATE 78 ML/MIN (60-); GLUCOSE 115 mg/dL (74-118); POTASSIUM 4.2 mmol/L (3.5-5.1); SODIUM 132 mmol/L (136-145)
[2021-07-07 05:49] LABS: ALANINE AMINOTRANSFERASE < 6 IU/L (0-55)
[2021-07-07] MEDS: PANTOPRAZOLE SOD 40 MG TABEC PO SCH (07:36)
[2021-07-07 08:09] VITALS: BP 135/78
[2021-07-07] MEDS: APIXAB 2.5 MG TABLET PO SCH ×2 (08:47→16:59)
[2021-07-07] MEDS: FAMOTIDINE 20 MG TAB PO SCH ×2 (08:47→21:14)
[2021-07-07] MEDS: SODIUM CHLORIDE 0.9% 1000ML 1,000 ML IV SCH (08:47)
[2021-07-07 10:06] VITALS: BP 135/78
[2021-07-07 11:29] VITALS: BP 140/72
[2021-07-07] MEDS ORDERED: PAMIDRONATE DISODIUM 30 MG/VIAL IV ONE (12:45)
[2021-07-07 13:03] LABS: BASOPHILS # (AUTO) 0.1 (0.0-0.1); BASOPHILS % 0.7 % (0.0-1.0); EOSINOPHILS # (AUTO) 0.2 (0.0-0.4); EOSINOPHILS % 2.5 % (0.0-6.0); HEMATOCRIT 30.6 % (38.2-49.6); HEMOGLOBIN 9.1 g/dL (14.0-18.0); LYMPHOCYTES # (AUTO) 0.8 (1.0-3.2); LYMPHOCYTES % 9.8 % (18.0-39.1); MEAN CORPUSCULAR HEMOGLOBIN 25.8 pg (28-32); MEAN CORPUSCULAR HGB CONC 29.7 g/dL (31-35); MEAN CORPUSCULAR VOLUME 86.7 fL (81-99); MONOCYTES # (AUTO) 0.6 (0.2-0.8); MONOCYTES % 6.7 % (4.4-11.3); NEUTROPHILS # (AUTO) 6.7 (2.1-6.9); NEUTROPHILS % 79.9 % (38.7-80.0); PLATELET COUNT 470 x10e3/uL (140-360); RED BLOOD COUNT 3.53 x10e6/uL (4.3-5.7); RED CELL DISTRIBUTION WIDTH 14.4 % (11.7-14.4)
[2021-07-07 13:26] LABS: ANION GAP 14.7 mmol/L (8-16); CALCIUM 12.2 mg/dL (8.4-10.2); CREATININE, SERUM 1.18 mg/dL (0.72-1.25); POTASSIUM 4.7 mmol/L (3.5-5.1)
[2021-07-07] MEDS ORDERED: PAMIDRONATE DISODIUM 30 MG in SODIUM CHLORIDE 0.9% 500ML 500 ML IV ONE (13:30)
[2021-07-07] MEDS ORDERED: ONDANSETRON HCL 4 MG ORAL DISINTEGRATING TAB PO PRN (18:30)
[2021-07-07] MEDS: IRON SUCROSE 100 MG in SODIUM CHLORIDE 0.9% 100 ML 100 ML IV SCH (19:57)
[2021-07-07 20:00] VITALS: BP 132/76
[2021-07-07 20:54] VITALS: BP 132/76
[2021-07-08] VITALS: BP 160/85
[2021-07-08] MEDS: SODIUM CHLORIDE 0.9% 1000ML 1,000 ML IV SCH ×2 (02:44→05:15)
[2021-07-08 07:46] VITALS: BP 141/80
[2021-07-08] MEDS: FAMOTIDINE 20 MG TAB PO SCH (08:31)
[2021-07-08] MEDS: APIXAB 2.5 MG TABLET PO SCH (08:31)
[2021-07-08] MEDS: PANTOPRAZOLE SOD 40 MG TABEC PO SCH (08:31)
[2021-07-08 09:47] VITALS: BP 141/80
[2021-07-08 11:13] VITALS: BP 135/78
[2021-07-08 13:26] LABS: ALBUMIN/GLOBULIN RATIO 0.7 (0.8-2.0); ALKALINE PHOSPHATASE 192 IU/L (40-150); ANION GAP 16.5 mmol/L (8-16); BLOOD UREA NITROGEN 11 mg/dL (7-26); BUN/CREATININE RATIO 10 (6-25); CALCIUM 10.9 mg/dL (8.4-10.2); CARBON DIOXIDE 19 mmol/L (22-29); CHLORIDE 101 mmol/L (98-107); CREATININE, SERUM 1.13 mg/dL (0.72-1.25); EST GLOMERULAR FILTRATION RATE 68 ML/MIN (60-); GLUCOSE 125 mg/dL (74-118); POTASSIUM 4.5 mmol/L (3.5-5.1); SODIUM 132 mmol/L (136-145)
[2021-07-08 13:27] LABS: ALANINE AMINOTRANSFERASE < 6 IU/L (0-55)
[2021-07-08 15:39] VITALS: BP 131/75
== END 2021-07-08 15:52 | disposition home or self-care (01) | DRG 687 ==
LOC: ER 14:30 → ERHOLD 17:39 → MED/SURG 19:48
PROVIDERS: ADMIT Internal Medicine; ATTEND Internal Medicine
DX: C64.2 Malignant neoplasm of left kidney, except renal pelvis (principal); C78.6 Secondary malignant neoplasm of retroperitoneum and peritoneum; N17.9 Acute kidney failure, unspecified; G51.0 Bell's palsy; E11.649 Type 2 diabetes mellitus with hypoglycemia without coma; Z86.718 Personal history of other venous thrombosis and embolism; Z79.01 Long term (current) use of anticoagulants; Z79.84 Long term (current) use of oral hypoglycemic drugs; E83.52 Hypercalcemia; D50.9 Iron deficiency anemia, unspecified; E11.22 Type 2 diabetes mellitus with diabetic chronic kidney disease; I12.9 Hypertensive chronic kidney disease with stage 1 through stage 4 chronic kidney disease, or unspecified chronic kidney disease; N18.2 Chronic kidney disease, stage 2 (mild); Z20.822 Contact with and (suspected) exposure to COVID-19
CPT/HCPCS: 36415; 70450; 80048; 80053; 82270; 82310; 82550; 82553; 82948; 83036; 83519; 83540; 83970; 84466; 84484; 85025; 85610; 85730; 93005; 94799; 99251; 99284; J1756; J2430; J7030; J7040; J7070; J7799; U0002

== ENCOUNTER 2022-09-30 08:03 | Inpatient (IN) | payer OTHER ==
[~2022-09-30] VITALS: Ht 170.2 cm; Wt 102.1 kg
[~2022-09-30 08:03] MED LIST changes: +vitamin B-12
[2022-09-30] MEDS ORDERED: LACTATED RINGER'S 1,000 ML INJ ONE (08:30)
[2022-09-30 09:12] LABS: ALBUMIN 1.6 g/dL (3.5-5.0); ALBUMIN/GLOBULIN RATIO 0.3 (0.8-2.0); ANION GAP 11.9 mmol/L (8-16); CALCIUM 11.6 mg/dL (8.4-10.2); CREATININE, SERUM 0.72 mg/dL (0.72-1.25); POTASSIUM 4.9 mmol/L (3.5-5.1)
[2022-09-30 09:21] LABS: BASOPHILS % 0.2 % (0.0-1.0); EOSINOPHILS % 0.2 % (0.0-6.0); HEMATOCRIT 28.3 % (38.2-49.6); HEMOGLOBIN 8.6 g/dL (14.0-18.0); LYMPHOCYTES # (AUTO) 1.2 (1.0-3.2); LYMPHOCYTES % 11.2 % (18.0-39.1); MEAN CORPUSCULAR HEMOGLOBIN 27.1 pg (28-32); MEAN CORPUSCULAR HGB CONC 30.4 g/dL (31-35); MEAN CORPUSCULAR VOLUME 89.3 fL (81-99); MONOCYTES # (AUTO) 1.3 (0.2-0.8); MONOCYTES % 11.9 % (4.4-11.3); NEUTROPHILS # (AUTO) 8.2 (2.1-6.9); NEUTROPHILS % 75.9 % (38.7-80.0); PLATELET COUNT 428 x10e3/uL (140-360); RED BLOOD COUNT 3.17 x10e6/uL (4.3-5.7); RED CELL DISTRIBUTION WIDTH 16.5 % (11.7-14.4)
[2022-09-30 09:31] LABS: CLARITY,URINE SL CLOUDY (CLEAR); COLOR,URINE ORANGE (YELLOW); KETONES,URINE NEGATIVE (NEGATIVE); LEUKOCYTE ESTERASE ,URINE NEGATIVE (NEGATIVE); NITRITE,URINE NEGATIVE (NEGATIVE); PROTEIN,URINE DIPSTICK 2+ (NEGATIVE)
[2022-09-30 09:45] LABS: RBC,URINE 0-5 /HPF (0-5); WBC,URINE (MAN) 0-5 /HPF (0-5)
[2022-09-30 09:46] LABS: BACTERIA,URINE FEW /HPF; EPITHELIAL CELLS,URINE FEW /LPF
[2022-09-30] MEDS: SODIUM CHLORIDE 0.9% 1000ML 1,000 ML IV SCH ×2 (11:00→20:15)
[2022-09-30] MEDS: ONDANSETRON HCL INJ 2MG/ML 2ML 2 MG/ML VIAL IV PRN (11:58)
[2022-09-30] MEDS ORDERED: PROMETHAZINE 12.5MG/ NACL 0.9% 12.5 MG/50 ML BAG IV PRN (14:15)
[2022-09-30 16:36] VITALS: BP 140/80
[2022-09-30 16:46] VITALS: BP 140/80
[2022-09-30] MEDS ORDERED: ENOXAPARIN SOD INJ 40 MG/0.4 ML SYR SC SCH (17:00)
[2022-09-30] MEDS: APIXABAN 5 MG TABLET PO SCH (17:49)
[2022-09-30] MEDS: SODIUM BICARBONATE 650 MG TAB PO SCH (17:50)
[2022-09-30 20:00] VITALS: BP 137/72
[2022-09-30 20:01] VITALS: BP 137/72
[2022-10-01] VITALS (8 sets, daily range): BP systolic 123–154; BP diastolic 73–86
[2022-10-01 05:41] LABS: BASOPHILS % 0.3 % (0.0-1.0); EOSINOPHILS # (AUTO) 0.1 (0.0-0.4); EOSINOPHILS % 0.5 % (0.0-6.0); HEMATOCRIT 25.6 % (38.2-49.6); HEMOGLOBIN 7.7 g/dL (14.0-18.0); LYMPHOCYTES # (AUTO) 1.1 (1.0-3.2); LYMPHOCYTES % 11.4 % (18.0-39.1); MEAN CORPUSCULAR HEMOGLOBIN 26.7 pg (28-32); MEAN CORPUSCULAR HGB CONC 30.1 g/dL (31-35); MEAN CORPUSCULAR VOLUME 88.9 fL (81-99); MONOCYTES # (AUTO) 1.4 (0.2-0.8); MONOCYTES % 13.7 % (4.4-11.3); NEUTROPHILS # (AUTO) 7.3 (2.1-6.9); NEUTROPHILS % 73.4 % (38.7-80.0); PLATELET COUNT 420 x10e3/uL (140-360); RED BLOOD COUNT 2.88 x10e6/uL (4.3-5.7); RED CELL DISTRIBUTION WIDTH 16.3 % (11.7-14.4)
[2022-10-01 06:04] LABS: ANION GAP 9.3 mmol/L (8-16); CALCIUM 11.1 mg/dL (8.4-10.2); CREATININE, SERUM 0.7 mg/dL (0.72-1.25); POTASSIUM 4.3 mmol/L (3.5-5.1)
[2022-10-01 06:43] LABS: ALBUMIN 1.5 g/dL (3.5-5.0); BILIRUBIN,DIRECT 0.9 mg/dL (0.0-0.5)
[2022-10-01 09:10] LABS: MAGNESIUM 1.6 MG/DL (1.3-2.1); PHOSPHORUS 2.7 MG/DL (2.3-4.7)
[2022-10-01] MEDS: SODIUM BICARBONATE 650 MG TAB PO SCH ×2 (09:44→17:13)
[2022-10-01] MEDS: PANTOPRAZOLE SOD 40 MG TABEC PO SCH (09:44)
[2022-10-01] MEDS: SODIUM CHLORIDE 0.9% 1000ML 1,000 ML IV SCH ×2 (09:44→17:26)
[2022-10-01] MEDS: ONDANSETRON HCL INJ 2MG/ML 2ML 2 MG/ML VIAL IV PRN (10:17)
[2022-10-01] MEDS: APIXABAN 5 MG TABLET PO SCH ×3 (12:41→21:44)
[2022-10-01 14:10] LABS: OSMOLALITY,SERUM OSMOMETER 265 mOsmol/kg (275-295)
[2022-10-01] MEDS: SODIUM CHLORIDE 1 GM TAB PO SCH ×2 (17:13→21:38)
[2022-10-01] MEDS: TAMSULOSIN HCL 0.4 MG CAP PO SCH (21:44)
[2022-10-02] VITALS (8 sets, daily range): BP systolic 117–157; BP diastolic 55–86
[2022-10-02] MEDS: SODIUM CHLORIDE 0.9% 1000ML 1,000 ML IV SCH ×2 (02:15→09:40)
[2022-10-02 06:01] LABS: MAGNESIUM 1.5 MG/DL (1.3-2.1); PHOSPHORUS 2.9 MG/DL (2.3-4.7)
[2022-10-02] MEDS: SODIUM BICARBONATE 650 MG TAB PO SCH ×2 (09:40→17:28)
[2022-10-02] MEDS: APIXABAN 5 MG TABLET PO SCH ×2 (09:40→21:40)
[2022-10-02] MEDS: TAMSULOSIN HCL 0.4 MG CAP PO SCH ×2 (09:40→21:40)
[2022-10-02] MEDS: PANTOPRAZOLE SOD 40 MG TABEC PO SCH (09:40)
[2022-10-02] MEDS: SODIUM CHLORIDE 1 GM TAB PO SCH ×3 (09:41→21:41)
[2022-10-02] MEDS ORDERED: GLYBURIDE (15:09)
[2022-10-02] MEDS ORDERED: GLIPIZIDE5 MG PO (15:19)
[2022-10-02] MEDS ORDERED: DEXTROSE 50% SYRINGE 50 ML IV PRN (19:00)
[2022-10-02] MEDS: INSULIN LISPRO 100 UNIT/1 ML 3ML VIAL SQ SCH (21:46)
[2022-10-02] MEDS: FUROSEMIDE INJ 10 MG/ML 2 ML VIAL IV SCH (21:51)
[2022-10-03] VITALS (7 sets, daily range): BP systolic 117–136; BP diastolic 67–77
[2022-10-03] MEDS: FUROSEMIDE INJ 10 MG/ML 2 ML VIAL IV SCH (05:51)
[2022-10-03] MEDS: SODIUM CHLORIDE 0.9% 1000ML 1,000 ML IV SCH ×2 (05:51→08:15)
[2022-10-03] MEDS: DEMECLOCYCLINE HCL 300 MG TAB PO SCH ×2 (06:48→14:06)
[2022-10-03] MEDS: INSULIN LISPRO 100 UNIT/1 ML 3ML VIAL SQ SCH ×4 (09:25→21:00)
[2022-10-03] MEDS: SENNA-S TABLET PO SCH (09:28)
[2022-10-03] MEDS: SODIUM CHLORIDE 1 GM TAB PO SCH ×3 (09:28→21:12)
[2022-10-03] MEDS: SODIUM BICARBONATE 650 MG TAB PO SCH (09:28)
[2022-10-03] MEDS: DOCUSATE SODIUM 100 MG CAP PO SCH ×2 (09:29→17:10)
[2022-10-03] MEDS: APIXABAN 5 MG TABLET PO SCH ×2 (09:29→21:12)
[2022-10-03] MEDS: TAMSULOSIN HCL 0.4 MG CAP PO SCH ×2 (09:29→21:12)
[2022-10-03] MEDS: PANTOPRAZOLE SOD 40 MG TABEC PO SCH (09:29)
[2022-10-03 22:38] LABS: BLOOD UREA NITROGEN 7 mg/dL (7-26); GLUCOSE 137 mg/dL (74-118)
[2022-10-03 22:39] LABS: OSMOLALITY,SERUM 253 mOsm/kg (278-305); SODIUM 126 mmol/L (136-145)
[2022-10-04] VITALS (9 sets, daily range): BP systolic 121–142; BP diastolic 59–79
[2022-10-04 06:18] LABS: ALBUMIN 1.3 g/dL (3.5-5.0); ALBUMIN/GLOBULIN RATIO 0.2 (0.8-2.0); CALCIUM 10.8 mg/dL (8.4-10.2); CREATININE, SERUM 0.7 mg/dL (0.72-1.25)
[2022-10-04] MEDS: INSULIN LISPRO 100 UNIT/1 ML 3ML VIAL SQ SCH ×4 (08:00→21:00)
[2022-10-04] MEDS: PANTOPRAZOLE SOD 40 MG TABEC PO SCH ×2 (08:30→08:55)
[2022-10-04] MEDS: SODIUM CHLORIDE 1 GM TAB PO SCH ×3 (08:55→21:15)
[2022-10-04] MEDS: SENNA-S TABLET PO SCH (08:55)
[2022-10-04] MEDS: TAMSULOSIN HCL 0.4 MG CAP PO SCH ×2 (08:55→21:15)
[2022-10-04] MEDS: APIXABAN 5 MG TABLET PO SCH ×2 (08:55→21:15)
[2022-10-04] MEDS: DOCUSATE SODIUM 100 MG CAP PO SCH ×2 (08:55→17:45)
[2022-10-04] MEDS ORDERED: PAMIDRONATE DISODIUM 30 MG/VIAL IV ONE (09:00)
[2022-10-04] MEDS ORDERED: PAMIDRONATE DISODIUM 30 MG in SODIUM CHLORIDE 0.9% 500ML 500 ML IV ONE (10:00)
[2022-10-04] MEDS ORDERED: IOPAMIDOL 370 MG/ML 100 ML INFUS..BTL INJ ONE (10:07)
[2022-10-05 04:40] VITALS: BP 111/87
[2022-10-05 05:39] LABS: BASOPHILS # (AUTO) 0.1 (0.0-0.1); BASOPHILS % 0.5 % (0.0-1.0); EOSINOPHILS # (AUTO) 0.1 (0.0-0.4); EOSINOPHILS % 0.7 % (0.0-6.0); HEMATOCRIT 23.8 % (38.2-49.6); LYMPHOCYTES # (AUTO) 1.5 (1.0-3.2); LYMPHOCYTES % 13.4 % (18.0-39.1); MEAN CORPUSCULAR HEMOGLOBIN 26.1 pg (28-32); MEAN CORPUSCULAR HGB CONC 29.4 g/dL (31-35); MEAN CORPUSCULAR VOLUME 88.8 fL (81-99); MONOCYTES # (AUTO) 1.6 (0.2-0.8); MONOCYTES % 14.6 % (4.4-11.3); NEUTROPHILS # (AUTO) 7.7 (2.1-6.9); NEUTROPHILS % 69.6 % (38.7-80.0); PLATELET COUNT 593 x10e3/uL (140-360); RED BLOOD COUNT 2.68 x10e6/uL (4.3-5.7); RED CELL DISTRIBUTION WIDTH 17.2 % (11.7-14.4)
[2022-10-05 06:10] LABS: ALBUMIN 1.5 g/dL (3.5-5.0); ALBUMIN/GLOBULIN RATIO 0.3 (0.8-2.0); CALCIUM 10.8 mg/dL (8.4-10.2); CREATININE, SERUM 0.84 mg/dL (0.72-1.25); MAGNESIUM 1.8 MG/DL (1.3-2.1); PHOSPHORUS 2.8 MG/DL (2.3-4.7)
[2022-10-05] MEDS: INSULIN LISPRO 100 UNIT/1 ML 3ML VIAL SQ SCH ×4 (08:00→21:59)
[2022-10-05 08:15] VITALS: BP 119/66
[2022-10-05 08:16] VITALS: BP 119/66
[2022-10-05] MEDS: SODIUM CHLORIDE 1 GM TAB PO SCH ×3 (09:52→21:50)
[2022-10-05] MEDS: APIXABAN 5 MG TABLET PO SCH ×2 (09:52→21:50)
[2022-10-05] MEDS: TAMSULOSIN HCL 0.4 MG CAP PO SCH ×2 (09:52→21:50)
[2022-10-05] MEDS: SENNA-S TABLET PO SCH ×2 (10:11→17:30)
[2022-10-05 12:10] VITALS: BP 136/78
[2022-10-05 12:13] LABS: OSMOLALITY,SERUM OSMOMETER 265 mOsmol/kg (275-295)
[2022-10-05 16:15] VITALS: BP 138/79
[2022-10-05 20:00] VITALS: BP 131/70
[2022-10-06] VITALS: BP 130/71
[2022-10-06 04:00] VITALS: BP 121/70
[2022-10-06 05:41] LABS: CALCIUM 10.6 mg/dL (8.4-10.2); CREATININE, SERUM 0.75 mg/dL (0.72-1.25)
[2022-10-06] MEDS: INSULIN LISPRO 100 UNIT/1 ML 3ML VIAL SQ SCH ×2 (08:01→10:58)
[2022-10-06] MEDS ORDERED: SODIUM CHLORI1000 M2 PO (08:18)
[2022-10-06] MEDS ORDERED: FLOMAX0.4 MG PO (08:18)
[2022-10-06] MEDS ORDERED: METOPROLOL TART25 MG PO (08:18)
[2022-10-06] MEDS ORDERED: SENNA S TABLET1 EACH PO (08:18)
[2022-10-06] MEDS ORDERED: METOPROLOL TARTRATE 25 MG TAB PO SCH (08:45)
[2022-10-06 08:58] VITALS: BP 121/61
[2022-10-06 09:26] VITALS: BP 144/81
[2022-10-06 09:38] VITALS: BP 144/81
[2022-10-06] MEDS: PANTOPRAZOLE SOD 40 MG TABEC PO SCH (09:40)
[2022-10-06] MEDS: APIXABAN 5 MG TABLET PO SCH (09:41)
[2022-10-06] MEDS: SODIUM CHLORIDE 1 GM TAB PO SCH (09:41)
[2022-10-06] MEDS: TAMSULOSIN HCL 0.4 MG CAP PO SCH (09:41)
[2022-10-06] MEDS: SENNA-S TABLET PO SCH (09:41)
[2022-10-06] MEDS ORDERED: ONDANSETRON HCL 4 MG ORAL DISINTEGRATING TAB PO PRN (12:30)
[2022-10-06 15:14] LABS: ALPHA 2 GLOBULIN URINE PEP 19.9 % (.)
== END 2022-10-06 12:14 | disposition home or self-care (01) | DRG 643 ==
LOC: ER 08:16 → ERHOLD 11:45 → OBSVTOIN 13:34 → MED/SURG 14:40
PROVIDERS: ADMIT Internal Medicine; ATTEND Internal Medicine
DX: E22.2 Syndrome of inappropriate secretion of antidiuretic hormone (principal); I82.220 Acute embolism and thrombosis of inferior vena cava; C64.2 Malignant neoplasm of left kidney, except renal pelvis; C78.00 Secondary malignant neoplasm of unspecified lung; C79.51 Secondary malignant neoplasm of bone; C78.7 Secondary malignant neoplasm of liver and intrahepatic bile duct; I82.3 Embolism and thrombosis of renal vein; C79.70 Secondary malignant neoplasm of unspecified adrenal gland; E86.0 Dehydration; E11.9 Type 2 diabetes mellitus without complications; E83.52 Hypercalcemia; E66.01 Morbid (severe) obesity due to excess calories; Z68.35 Body mass index [BMI] 35.0-35.9, adult; Z86.718 Personal history of other venous thrombosis and embolism; Z79.01 Long term (current) use of anticoagulants; E80.6 Other disorders of bilirubin metabolism; Z85.528 Personal history of other malignant neoplasm of kidney; G51.0 Bell's palsy; Z20.822 Contact with and (suspected) exposure to COVID-19; K21.9 Gastro-esophageal reflux disease without esophagitis; D47.2 Monoclonal gammopathy; D64.9 Anemia, unspecified; Z74.8 Other problems related to care provider dependency; Z51.5 Encounter for palliative care
CPT/HCPCS: 36415; 71045; 71260; 74177; 80048; 80053; 80061; 80076; 81001; 82947; 82948; 83036; 83519; 83605; 83735; 83930; 83935; 83970; 84100; 84165; 84166; 84295; 84300; 84443; 84520; 85025; 87040; 87086; 93005; 94799; 99284; J1940; J2405; J2430; J7030; J7040; J7121; Q9967